=== PATIENT | female | born 1995 | race African-American/Black ===

== ENCOUNTER → 2021-06-12 13:35 | Outpatient (BNVA) | payer OTHER, SELFPAY | PROVIDERS: Visit Provider Advanced Practice Midwife ==

== ENCOUNTER 2021-06-27 15:08 | Outpatient (REF) | payer OTHER, SELFPAY ==
--- NOTE | ~2021-06-27 | US_ITS ---
EXAMINATION: US PELVIS COMPLETE CLINICAL INFORMATION: Dysmenorrhea. COMPARISON: None TECHNIQUE: Ultrasound of the pelvis is performed using both transabdominal transducers along with Doppler. Patient declined transvaginal imaging. Unable to tolerate. FINDINGS: Uterus: The uterus is retroverted and anteflexed and measures 7.9 x 3.9 x 5.7 cm. The double wall endometrial thickness is 0.6 mm. The uterus is smooth in contour and has normal myometrial echogenicity. No visible fibroid. Adnexa: Both ovaries are visualized. There is normal color flow to the adnexa. There is no ovarian torsion. There is no pelvic ascites or fluid collection. Right ovary measures 3.8 x 2 x 3.2 cm. Right ovarian volume of 12.7 mL. Left ovary measures 3.8 x 1.7 x 2.5 cm. Left ovarian volume of 8.6 mm. US/US pelvic complete IMPRESSION: Unremarkable examination.
[2021-06-27 15:47] LABS: Hematocrit 37.9 % (37-47); Hemoglobin 12.9 g/dl (12.0-16.0); Mean Corpuscular Hemoglobin 29.6 pg (27.0-33.0); Mean Corpuscular Volume 86.9 fL (80-98); Mean Platelet Volume 11.4 fL (9.4-12.3); Platelet Count 275 X10*3/uL (160-400); Red Blood Count 4.36 X10*6/uL (4.20-5.50); Red Cell Distribution Width 12.8 % (11.0-16.0); White Blood Count 6.5 X10*3/uL (4.8-10.8)
[2021-06-27 16:27] LABS: Thyroid Stimulating Hormone 1.18 uIU/mL (0.32-4.0)
== END 2021-06-27 15:09 | disposition home or self-care (01) ==
LOC: HO.US 15:08
PROVIDERS: Visit Provider Advanced Practice Midwife
DX: N94.6 Dysmenorrhea, unspecified (principal); N92.1 Excessive and frequent menstruation with irregular cycle
CPT/HCPCS: 36415; 76856; 84443; 85027

== ENCOUNTER → 2021-07-19 12:16 | Outpatient (BNVA) | payer OTHER, SELFPAY | PROVIDERS: Visit Provider Advanced Practice Midwife ==